=== PATIENT | female | born 1965 | race Hispanic/Latino ===

== ENCOUNTER 2019-03-10 10:26 | Emergency (ER) | payer OTHER ==
[2019-03-10] MEDS ORDERED: FAMOTIDINE 20MG TAB 20 MG TAB ONE (10:56)
[2019-03-10] MEDS ORDERED: ASPIRIN 325 MG TABLET ONE (10:56)
[2019-03-10 11:02] LABS: EOSINOPHILS % (AUTO) 1.9 % (0.0-8.0); HEMATOCRIT 41.9 % (36-48); LYMPHOCYTES % (AUTO) 21.3 % (21.0-51.0); MEAN CORPUSCULAR HEMOGLOBIN 29.3 pg (27.0-33.0); MEAN CORPUSCULAR HGB CONC 34.1 g/dL (32.0-36.0); MEAN CORPUSCULAR VOLUME 85.7 fL (79-99); MONOCYTES % (AUTO) 6.1 % (3.0-13.0); NEUTROPHILS % (AUTO) 69.7 % (40.0-77.0); PLATELET COUNT (AUTO) 262 K/uL (130-400); RED BLOOD CELL COUNT(AUTO) 4.89 MIL/uL (4.00-5.50); RED CELL DISTRIBUTION WIDTH 13.5 % (11.0-15.5); WHITE BLOOD COUNT (AUTO) 8.7 K/uL (4.8-10.8)
[2019-03-10 11:09] LABS: CREATININE 0.8 mg/dL (0.5-1.5); POTASSIUM 3.6 mmol/L (3.5-5.1)
[2019-03-10 11:13] LABS: ALBUMIN 3.8 g/dL (3.5-5.0); BILIRUBIN,TOTAL 0.4 mg/dL (0.2-1.0)
[2019-03-10] MEDS ORDERED: LIDOCAINE HCL 2% VISCOUS 15 ML UDCUP ONE (11:43)
[2019-03-10] MEDS ORDERED: MAG HYDROX/AL HYDROX/SIMETH ES 30 ML SUSP UDCUP ONE (11:43)
== END 2019-03-10 13:24 | disposition home or self-care (01) ==
LOC: EDH 10:26
DX: R07.89 Other chest pain (principal); Z90.49 Acquired absence of other specified parts of digestive tract
CPT/HCPCS: 36415; 80053; 83690; 84484; 85025; 93005

== ENCOUNTER → 2019-07-21 | Outpatient (CLI) | payer OTHER | END | disposition home or self-care (01) | LOC: RAH 08:08 | PROVIDERS: ATTEND Internal Medicine | DX: J40 Bronchitis, not specified as acute or chronic (principal) | CPT/HCPCS: 71046 ==

== ENCOUNTER 2020-07-26 16:41 | Emergency (ER) | payer OTHER ==
[2020-07-26 17:25] LABS: BASOPHILS % (AUTO) 0.9 % (0.0-5.0); EOSINOPHILS % (AUTO) 2.8 % (0.0-8.0); HEMATOCRIT 42.1 % (36-48); MEAN CORPUSCULAR HEMOGLOBIN 28.6 pg (27.0-33.0); MEAN CORPUSCULAR HGB CONC 33.5 g/dL (32.0-36.0); MEAN CORPUSCULAR VOLUME 85.4 fL (79-99); MONOCYTES % (AUTO) 8.4 % (3.0-13.0); NEUTROPHILS % (AUTO) 63.3 % (40.0-77.0); PLATELET COUNT (AUTO) 297 K/uL (130-400); RED BLOOD CELL COUNT(AUTO) 4.93 MIL/uL (4.00-5.50); RED CELL DISTRIBUTION WIDTH 12.8 % (11.0-15.5); WHITE BLOOD COUNT (AUTO) 9.4 K/uL (4.8-10.8)
[2020-07-26 17:33] LABS: CREATININE 0.9 mg/dL (0.5-1.5)
[2020-07-26 17:38] LABS: BILIRUBIN,TOTAL 0.2 mg/dL (0.2-1.0); TOTAL PROTEIN, SERUM 7.1 g/dL (6.0-8.3)
[2020-07-26 17:40] LABS: APPEARANCE,URINE Clear (CLEAR); BILIRUBIN,URINE Negative (NEGATIVE); COLOR,URINE Yellow (YELLOW); GLUCOSE, URINE (UA) Negative (NEGATIVE); KETONES,URINE Negative (NEGATIVE); LEUKOCYTE ESTERASE ,URINE Negative (NEGATIVE); NITRATE,URINE Negative (NEGATIVE); OCCULT BLOOD,URINE Negative (NEGATIVE); PROTEIN,URINE Negative (NEGATIVE); UROBILINOGEN,URINE 0.2 mg/dL (0.2-1.0)
[2020-07-26] MEDS ORDERED: BENZONATATE 100 MG CAPSULE PO ONE (18:15)
== END 2020-07-26 18:58 | disposition home or self-care (01) ==
LOC: EDH 16:41
DX: U07.1 COVID-19 (principal); R00.2 Palpitations
CPT/HCPCS: 36415; 80053; 81003; 84484; 85025; 85378; 93005

== ENCOUNTER → 2020-07-26 | Outpatient (CLI) | payer OTHER | END | disposition home or self-care (01) | LOC: RAH 10:44 | PROVIDERS: ATTEND Internal Medicine | DX: R00.2 Palpitations (principal); U07.1 COVID-19 | CPT/HCPCS: 71046 ==

== ENCOUNTER → 2023-01-28 | Outpatient (CLI) | payer OTHER | END | disposition home or self-care (01) | LOC: RAH 12:13 | PROVIDERS: ATTEND Nurse Practitioner Adult Health | DX: Z13.6 Encounter for screening for cardiovascular disorders (principal) | CPT/HCPCS: 75571 ==

== ENCOUNTER 2023-06-10 05:58 | Emergency (ER) | payer OTHER ==
[~2023-06-10] VITALS: Ht 152.4 cm; Wt 72.1 kg
[2023-06-10] MEDS: NITROGLYCERIN 0.4 MG SL TAB SL PRN ×2 (06:22→06:32)
[2023-06-10] MEDS ORDERED: 0.9%NACL 1000ML 1,000 ML IV ONE (06:30)
[2023-06-10 06:35] LABS: RAPID GROUP A STREP negative (NEGATIVE)
[2023-06-10] MEDS ORDERED: NITROGLYCERIN 50MG/D5W 250ML 0 BOT ONE (06:36)
[2023-06-10 06:41] LABS: COVID19 (SARS ANTIGEN RAPID) POSITIVE FOR SARS AG (NEGATIVE)
[2023-06-10 06:45] LABS: INFLUENZA TYPE A Negative For Type A (NEGATIVE); INFLUENZA TYPE B Negative For Type B (NEGATIVE)
[2023-06-10 06:47] VITALS: TEMP 100.6
[2023-06-10] MEDS ORDERED: ACETAMINOPHEN 325 MG TAB PO ONE (07:00)
[2023-06-10 07:12] LABS: BASOPHILS # (AUTO) 0.03 K/uL (0.00-0.20); BASOPHILS % (AUTO) 0.3 % (0.0-5.0); EOSINOPHILS # (AUTO) 0.06 K/uL (0.00-0.70); EOSINOPHILS % (AUTO) 0.6 % (0.0-8.0); HEMATOCRIT 40.7 % (36-48); IMMATURE GRANULOCYTE ABSOLUTE 0.09 K/uL (0-1); LYMPHOCYTES # (AUTO) 0.5 K/uL (1.0-4.8); LYMPHOCYTES % (AUTO) 4.7 % (21.0-51.0); MEAN CORPUSCULAR HEMOGLOBIN 28.8 pg (27.0-33.0); MEAN CORPUSCULAR HGB CONC 33.4 g/dL (32.0-36.0); MEAN CORPUSCULAR VOLUME 86.2 fL (79-99); MONOCYTES # (AUTO) 0.7 K/uL (0.1-1.0); MONOCYTES % (AUTO) 6.9 % (3.0-13.0); NEUTROPHILS # (AUTO) 8.8 K/uL (1.8-7.7); NEUTROPHILS % (AUTO) 86.6 % (40.0-77.0); PLATELET COUNT (AUTO) 250 K/uL (130-400); RED BLOOD CELL COUNT(AUTO) 4.72 MIL/uL (4.00-5.50); RED CELL DISTRIBUTION WIDTH 12.4 % (11.0-15.5); WHITE BLOOD COUNT (AUTO) 10.2 K/uL (4.8-10.8)
[2023-06-10 07:38] LABS: ALANINE AMINOTRANSFERASE 19 U/L (12-78); ALBUMIN 3.9 g/dL (3.5-5.0); ASPARTATE AMINOTRANSFERASE 17 U/L (10-37); BILIRUBIN,TOTAL 0.5 mg/dL (0.2-1.0); CARBON DIOXIDE 26 mmol/L (21-32); CHLORIDE 100 mmol/L (101-111); CREATINE KINASE, TOTAL 43 U/L (21-232); GLOMERULAR FILTR. RATE CALC 64 mL/min (>90); GLUCOSE,RANDOM 142 mg/dL (70-105); MYOGLOBIN 34 ng/mL (10-92); POTASSIUM 3.7 mmol/L (3.5-5.1); SODIUM SERUM 136 mmol/L (136-145); TOTAL PROTEIN, SERUM 7.1 g/dL (6.0-8.3); UREA NITROGEN, BLOOD 13 mg/dL (7-18)
[2023-06-10 08:50] VITALS: BP 112/67; PULSE 92; RESP 12; O2SAT 95
[2023-06-10] MEDS ORDERED: NAPR-1192 PO (08:58)
[2023-06-10] MEDS ORDERED: ALBUHFA IH (08:58)
[2023-06-10] MEDS ORDERED: BENZ-39 PO (08:58)
== END 2023-06-10 09:05 | disposition home or self-care (01) ==
LOC: EDH 05:58
DX: U07.1 COVID-19 (principal); R07.89 Other chest pain; Z20.822 Contact with and (suspected) exposure to COVID-19; Z98.890 Other specified postprocedural states
CPT/HCPCS: 99285; 96360; 71045; 87426; 82550; 83874; 84484; 80053; 83880; 85025; 87880; 87804 ×2; 36415; 93005 ×2; J7030; J3490

== ENCOUNTER 2025-02-10 18:23 | Emergency (ER) | payer OTHER ==
[~2025-02-10] VITALS: Ht 152.4 cm; Wt 70.8 kg
[~2025-02-10 18:23] MED LIST: ALBUHFA IH; BENZ-39 PO; NAPR-1192 PO
[2025-02-10 18:55] LABS: SARS-CoV-2, RNA, NAAT NEGATIVE SARS CoV-2 (NEGATIVE)
[2025-02-10 18:59] LABS: INFLUENZA TYPE A Negative For Type A (NEGATIVE); INFLUENZA TYPE B Negative For Type B (NEGATIVE)
[2025-02-10] MEDS ORDERED: NITROGLYCERIN 0.4 MG SL TAB SL PRN (19:00)
[2025-02-10 19:05] LABS: IMMATURE GRANULOCYTE ABSOLUTE 0.05 K/uL (0-1); NUCLEATED RED BLOOD CELLS 0.0 % (0.0-0.19); PLATELET COUNT (AUTO) 254 K/uL (130-400); RED BLOOD CELL COUNT(AUTO) 4.87 MIL/uL (4.00-5.50); RED CELL DISTRIBUTION WIDTH 12.7 % (11.0-15.5); WHITE BLOOD COUNT (AUTO) 9.5 K/uL (4.8-10.8)
[2025-02-10 19:16] LABS: CREATININE 0.9 mg/dL (0.5-1.0); GLOMERULAR FILTR. RATE CALC 73.0 mL/min (>90); GLUCOSE,RANDOM 146.0 mg/dL (70-105); SODIUM SERUM 142.0 mmol/L (136-145); UREA NITROGEN, BLOOD 20.0 mg/dL (7-18)
[2025-02-10 19:27] LABS: ASPARTATE AMINOTRANSFERASE 11.0 U/L (10-37); TOTAL PROTEIN, SERUM 6.9 g/dL (6.0-8.3)
[2025-02-10] MEDS: ASPIRIN 81MG CHEW TAB PO STA (19:31)
--- NOTE | 2025-02-10 19:56 | ERN ---
ED Note History of Present Illness Stated Complaint: CP Chief Complaint: Chest Pain Time Seen by MD: 18:28 Time Seen by Midlevel: 18:29 Dictation: 59-year-old female with the no medical history coming in with complaints of chest pain, shortness a breath. Patient states it has been going on for five days and worsens with she takes a deep breath. Patient also states pain run to the left upper quadrant. End-stage she feels fatigued. Patient states she was exposed to COVID two days ago at [facility]. Denies any recent travels, smoking, patient isn't bed-bound. Not on any hormonal replacement therapies. Allergies: Coded Allergies: No Known Drug Allergies (Verified Allergy, 06/05/13) Home Meds Active Scripts Naproxen (Naproxen) 375 Mg Tablet, 375 MG PO BID for Fever or Pain for 10 Days, #20 TAB 2 Refills Prov:CHIRAG APONTE Sr., MD 06/10/23 Benzonatate (Tessalon Perles) 100 Mg Cap, 100 MG PO TID for cough, #30 CAP 2 Refills Prov:CHIRAG APONTE Sr., MD 06/10/23 Albuterol Sulfate (Ventolin Hfa/Proventil Hfa/Proair Hfa) 90 Mcg Puff, 2 PUFF IH Q4H for WHEEZING, #1 INHALER 2 Refills Prov:CHIRAG APONTE Sr., MD 06/10/23 Past Medical History Past Medical History: No Pertinent History Surgical History: Hysterectomy, Tonsillectomy, Cholecystectomy, Family History: DM, HTN Social History: Negative, Lives with family RN Note Reviewed/Agreed w/PFSH: Yes Review of System Dictation Constitutional: Negative for fever,chills, and weight loss Eyes: Negative for injury, pain,redness, and discharge ENT: Negative for injury,pain or swelling Cardiovascular: Complaining of chest pain, no palpitations, and no edema Respiratory: Negative for shortness of breath, cough, and wheezing, Abdomen/GI: Negative for abdominal pain, nausea, vomiting, diarrhea, and constipation Back: Negative for injury and pain : Negative for injury, bleeding and discharge MS/Extremity: Negative for injury and deformity Skin: Negative for rash, and discoloration Neuro: Negative for headache, weakness, numbness, tingling, and seizure Psych: Negative for suicide ideation, homicidal ideation, and hallucinations Review of Systems: was completed Initial Vital Sign VS Vital Signs Date Time Temp Pulse Resp B/P (MAP) Pulse Ox O2 Delivery O2 Flow Rate FiO2 02/10/25 18:28 97.0 94 18 110/78 97 Room Air 0 02/10/25 19:38 21 Physical Exam Dictation General: awake, alert, NAD Head/Face: Normocephalic, atraumatic Eyes: PERRL, EOMI, vision at baseline ENT: oral cavity clear, TMs clear, no signs of infection Neck: Trachea midline, supple, no nuchal rigidity Cardiovascular: RRR, normal S1/S2, No MRGs, no JVD Respiratory: CTAB, no respiratory distress, No rales or wheezes Abdomen: Soft, non-tender, non-distended, normal bowel sounds, no guarding or rebound. Skin: Warm, dry, normal turgor, no rash MS/Extremity: Pulses equal, no cyanosis, neurovascular intact, FROM Neuro: COAx4, GCS 15, strength 5/5, CN 2-12 intact, normal cerebellar exam, normal gait, Psych: Normal behavior, mood, and affect normal Results (Laboratory/Radiology) Laboratory/Radiology Laboratory Tests Test 02/10/25 18:35 02/10/25 18:51 02/10/25 20:25 Influenza Type A Antigen Negative For Type A Influenza Type B Antigen Negative For Type B SARS-CoV-2, RNA, NAAT NEGATIVE SARS CoV-2 White Blood Count 9.5 K/uL (4.8-10.8) Red Blood Count 4.87 MIL/uL (4.00-5.50) Hemoglobin 14.2 g/dL (12.0-16.0) Hematocrit 41.7 % (36-48) Mean Corpuscular Volume 85.6 fL (79-99) Mean Corpuscular Hemoglobin 29.2 pg (27.0-33.0) Mean Corpuscular Hemoglobin Concent 34.1 g/dL (32.0-36.0) Red Cell Distribution Width 12.7 % (11.0-15.5) Platelet Count 254 K/uL (130-400) Mean Platelet Volume 10.5 fL (7.5-10.5) Immature Granulocyte % (Auto) 0.5 % (0-1) Neutrophils (%) (Auto) 71.9 % (40.0-77.0) Lymphocytes (%) (Auto) 20.0 % (21.0-51.0) L Monocytes (%) (Auto) 5.3 % (3.0-13.0) Eosinophils (%) (Auto) 1.8 % (0.0-8.0) Basophils (%) (Auto) 0.5 % (0.0-5.0) Neutrophils # (Auto) 6.8 K/uL (1.8-7.7) Lymphocytes # (Auto) 1.9 K/uL (1.0-4.8) Monocytes # (Auto) 0.5 K/uL (0.1-1.0) Eosinophils # (Auto) 0.17 K/uL (0.00-0.70) Basophils # (Auto) 0.05 K/uL (0.00-0.20) Absolute Immature Granulocyte (auto 0.05 K/uL (0-1) Nucleated Red Blood Cells 0.0 % (0.0-0.19) Sodium Level 142 mmol/L (136-145) Potassium Level 3.7 mmol/L (3.5-5.1) Chloride Level 106 mmol/L (101-111) Carbon Dioxide Level 26 mmol/L (21-32) Blood Urea Nitrogen 20 mg/dL (7-18) H Creatinine 0.9 mg/dL (0.5-1.0) Glomerular Filtration Rate Calc 73 mL/min (>90) Random Glucose 146 mg/dL (70-105) H Total Calcium 9.8 mg/dL (8.5-10.1) Total Bilirubin 0.2 mg/dL (0.2-1.0) Direct Bilirubin 0.1 mg/dL (0.0-0.3) Aspartate Amino Transf (AST/SGOT) 11 U/L (10-37) Alanine Aminotransferase (ALT/SGPT) 28 U/L (12-78) Alkaline Phosphatase 105 U/L (50-136) Troponin I High Sensitivity 6 ng/L (4-50) 5 ng/L (4-50) B-Type Natriuretic Peptide 15 pg/mL (0-100) Total Protein 6.9 g/dL (6.0-8.3) Albumin 3.8 g/dL (3.5-5.0) Lipase 37 U/L (16-77) Labs Reviewed?: Yes EKG: (+) NSR EKG Comment: EKGs did not 18 16. Sinus rhythm rate 83 beats per minute. Low voltage precordial leads. No STEMI interpreted by ER MD. X-RAY Comment: [facility] [address] [place] [address] IMAGING REPORT Signed PATIENT: ROSARIO HORNER MR#: [id number] : 1965 SEX: F AGE: 59 LOCATION: [facility] ORDER 36 STATUS: REG ER REPORT#: [id number] SERVICE 34 REASON: cp ORDERING PHYSICIAN: BRUNO ANDERSON NP PROCEDURE: CXR1VW - CHEST 1VW EXAM: CR Chest, 1 View. CLINICAL HISTORY: cp COMPARISON: None provided. FINDINGS: LUNGS: The lungs show no infiltrate or other acute finding. PLEURAL SPACES: No pleural effusion or pneumothorax. MEDIASTINUM: The cardiomediastinal silhouette is within normal limits. BONES: No aggressive appearing osseous lesion seen. IMPRESSION: No acute cardiopulmonary pathology is evident. /[place] DICTATED BY: RICH VOSS Jr., MD DATE: 02/10/252109 ELECTRONICALLY SIGNED BY: RICH VOSS Jr., MD DATE: 02/10/252109 ED Course ED Course Orders Procedure Category Date Status Time Cbc With Differential LAB 02/10/25 Complete 18:35 Basic Metabolic Panel LAB 02/10/25 Complete 18:35 Lipase LAB 02/10/25 Complete 18:35 Hepatic Function Panel LAB 02/10/25 Complete 18:35 Chest 1vw RAD 02/10/25 Resulted 18:35 Troponin I High LAB 02/10/25 Complete Sensitivity 18:35 12 Lead Ekg Tracing- EKG 02/10/25 Logged Technical 18:35 Covid Rna Naat LAB 02/10/25 Complete 18:35 Influenza Type A & B, LAB 02/10/25 Complete Rapid 18:35 Nitroglycerin 0.4mg PHA 02/10/25 In Process Sl Tab (Nitrostat) 19:00 Aspirin 81mg Chew Tab PHA 02/10/25 Complete (Aspirin 81mg Chew 18:35 Morphine 2mg Syg PHA 02/10/25 Complete (Morphine 2mg Syg) 18:35 Ondansetron 4mg Inj PHA 02/10/25 Complete (Zofran 4mg Inj) 18:35 B-Type Natriuretic LAB 02/10/25 Complete Peptide 18:35 Troponin I High LAB 02/10/25 Complete Sensitivity 20:19 Current Medications Medications (Trade) Dose Ordered Sig/Joshua Route PRN Reason Start Time Stop Time Status Last Admin Dose Admin Aspirin (Aspirin 81mg Chew Tab) 324 mg ONCE STAT PO 02/10/25 18:35 02/10/25 18:42 DC 02/10/25 19:31 Morphine Sulfate (morPHINE 2MG SYG) 2 mg ONCE STAT IVP 02/10/25 18:35 02/10/25 18:42 DC 02/10/25 19:30 Nitroglycerin (Nitrostat) 0.4 mg AD PRN SL CHEST PAIN 02/10/25 19:00 03/12/25 18:59 Ondansetron HCl (zoFRAN 4MG INJ) 4 mg ONCE STAT IVP 02/10/25 18:35 02/10/25 18:42 DC 02/10/25 19:30 Vital Signs Date Time Temp Pulse Resp B/P (MAP) Pulse Ox O2 Delivery O2 Flow Rate FiO2 02/10/25 19:38 98.1 88 20 111/67 99 Room Air* 0 21 02/10/25 18:28 97.0 94 18 110/78 97 Room Air 0 HEART Score Response (Comments) Value History: Low suspicion (0) 0 EKG: Normal 0 Age: 45-65yrs (+1) 1 Risk Factors: No known risk factors (0) 0 Initial Troponin: Normal limit (0) 0 Total 1 Medical Decision Making MDM MDM: 59-year-old female with the no medical history coming in with complaints of chest pain, shortness a breath. Patient states it has been going on for five days and worsens with she takes a deep breath. Patient also states pain run to the left upper quadrant. End-stage she feels fatigued. Patient states she was exposed to COVID two days ago at [facility]. Denies any recent travels, smoking, patient isn't bed-bound. Not on any hormonal replacement therapies. Blood work is unremarkable. Troponin is negative. EKGs did not show any ST elevations or dysrhythmias. Chest x-ray shows no acute finding. Heart score is one, low risk. Advised patient if she wanted to be admitted for further evaluation patient refused as she would rather go home as she feels much better after medications. Vital signs have been stable throughout the ER stay, patient isn't hypoxic or tachypneic. Chest pain has subsided. Educated patient to follow up outpatient with her PCP. Verbalized understanding, answered all questions. Differential diagnosis: Chest pain, STEMI, non STEMI. Rationale: Tests considered and ordered secondary to shared decision making include: Previous outside records reviewed: Old ER visits. Risk of complication and/or morbidity or mortality of patient management: None Medications-Per medication reconciliation Need for hospitalization: Patient does not meet criteria for hospitalization. Need for emergency major/minor surgery: No There are no social concerns with this patient. Prescription drug management Prescriptions will include symptomatic care Patient's prior external medical records from other ER visits were reviewed by me as indicated. Prior testing and results from previous visits were reviewed. Prior tests were taken into account with medical decision making and resource utilization, independent historian/historians were used to obtain complete medical history. I independently interpreted the test that were performed, results were reviewed by me and considered findings on radiology if ordered. Medical management and examination interpretation discussions were had by me with other qualified healthcare professionals as indicated for the patient's care. DX & DISP Disposition: Discharge Departure Impression: Primary Impression: Chest wall pain Condition: Stable Additional Instructions: Take [id number] medication for pain control. Follow up with your PCP in 1-2 days. If any symptoms reoccur or worsen please return back to the emergency room. Referrals: BARRERA SWEENEY MD (PCP) Time of Disposition: 20:55 I have reviewed the case, and I agree with, Diagnosis and Plan CONY CORTEZ Feb 10, 2025 19:56 BRUNO ANDERSON NP Feb 10, 2025 20:36
--- NOTE | 2025-02-10 20:12 | HMCIMG ---
EXAM: CR Chest, 1 View. CLINICAL HISTORY: cp COMPARISON: None provided. FINDINGS: LUNGS: The lungs show no infiltrate or other acute finding. PLEURAL SPACES: No pleural effusion or pneumothorax. MEDIASTINUM: The cardiomediastinal silhouette is within normal limits. BONES: No aggressive appearing osseous lesion seen. IMPRESSION: No acute cardiopulmonary pathology is evident. /[place]
[2025-02-10 21:05] VITALS: BP 118/67; PULSE 88; RESP 20; TEMP 98.1; O2SAT 99
--- NOTE | 2025-02-11 07:32 | EKG ---
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
== END 2025-02-10 21:07 | disposition home or self-care (01) ==
LOC: EDH 18:23
DX: R07.89 Other chest pain (principal); Z90.49 Acquired absence of other specified parts of digestive tract; Z90.710 Acquired absence of both cervix and uterus; Z79.899 Other long term (current) drug therapy; Z98.890 Other specified postprocedural states; Z20.822 Contact with and (suspected) exposure to COVID-19
CPT/HCPCS: 99285; 96374; 71045; 87635; 96375; 80076; 84484 ×2; 80048; 83880; 83690; 85025; 87804 ×2; 36415; 93005; J2270; J2405